=== PATIENT | male | born 1995 ===

== ENCOUNTER 2017-01-23 20:26 | Emergency (ER) | payer BC, OTHER ==
[2017-01-23 21:33] VITALS: PULSE 67; RESP 20; TEMP 98.2; O2SAT 98
[2017-01-23 22:01] LABS: RBC URINE 2 /hpf (0-3); URINE BILIRUBIN NEGATIVE (NEGATIVE); URINE BLOOD NEGATIVE (NEGATIVE); URINE COLOR Straw (YELLOW); URINE GLUCOSE (UA) NORMAL (Normal); URINE KETONE NEGATIVE (NEGATIVE); URINE LEUKOCYTE ESTERASE NEG Leu/uL (Negative); URINE PROTEIN NEGATIVE (NEGATIVE); URINE UROBILINOGEN NORMAL mg/dL (0.2-1.0)
--- NOTE | 2017-01-23 23:03 | C.PDOC ---
History Of Present Illness 21 y/o male c/o bladder tight nsensation for a few days, no dysurai, urgency or frequency. pt denies any penile discharge or pain. pt had unprotected sex one week ago with a female partner. no fever or chills. no ab pain, n/v/d. pt a/so c /o rash to both thighs, not itchy, similar to pimples he gets on legs often Time Seen by Provider: 01/23/17 22:14 Chief Complaint (Nursing): Abdominal Pain Past Medical History Reviewed: Historical Data, Nursing Documentation, Vital Signs Vital Signs: Last Vital Signs Temp 98.2 F 01/23/17 21:29 Pulse 67 01/23/17 21:29 Resp 20 01/23/17 21:29 BP 91/44 L 01/23/17 21:29 Pulse Ox 98 01/23/17 23:06 - Medical History PMH: Asthma Surgical History: No Surg Hx Family History: States: Unknown Family Hx - Social History Hx Tobacco Use: No Hx Alcohol Use: Yes Hx Substance Use: Yes - Immunization History Hx Tetanus Toxoid Vaccination: No Hx Influenza Vaccination: Yes Hx Pneumococcal Vaccination: No Review Of Systems Constitutional: Negative for: Fever, Chills Cardiovascular: Negative for: Chest Pain Respiratory: Negative for: Cough, Shortness of Breath Gastrointestinal: Positive for: Other (bladder discomfort). Negative for: Nausea, Vomiting, Diarrhea, Constipation Genitourinary: Negative for: Dysuria, Frequency, Incontinence, Penile Discharge , Scrotal Pain Skin: Positive for: Other (to legs) Neurological: Negative for: Weakness, Numbness Physical Exam - Physical Exam Appears: Non-toxic Skin: Warm, Dry, Other (scattered ingrown hairs on both anterior thighs with 1 mm erythematous papules, no warmth, itching, swelling. ) Chest: No Deformity, No Tenderness Cardiovascular: Rhythm Regular, No Murmur Gastrointestinal/Abdominal: Normal Exam, Bowel Sounds, Soft, No Tenderness Rectal: Deferred Back: No CVA Tenderness Male Genital: Normal Inspection, No Testicular Tenderness, No Testicular Swelling, No Scrotal Swelling, Circumcised ED Course And Treatment O2 Sat by Pulse Oximetry: 98 Medical Decision Making Medical Decision Making: rash appears like folliculitus will tx for sti with gu f/u Disposition Counseled Patient/Family Regarding: Diagnosis, Need For Followup - Disposition Referrals: Moar Zelaya MD [Staff Provider] - Disposition: HOME/ ROUTINE Disposition Time: 23:08 Condition: GOOD Instructions: Folliculitis (ED), Sexually Transmitted Diseases (ED) - Clinical Impression Clinical Impression: Folliculitis, Sexually transmitted disease in male
[2017-01-23 23:10] VITALS: BP 130/81
== END 2017-01-23 23:16 | disposition home or self-care (01) ==
LOC: MERGE 20:26 → C.ER 20:26
DX: L73.9 Follicular disorder, unspecified (principal); A64 Unspecified sexually transmitted disease

== ENCOUNTER 2017-03-05 19:01 | Emergency (ER) | payer BC, OTHER ==
[2017-03-05 19:08] VITALS: BP 142/84; PULSE 71; RESP 18; TEMP 98.2; O2SAT 100
--- NOTE | 2017-03-05 19:45 | C.PDOC ---
History Of Present Illness 22 year old male presents to the emergency room with complaints of a gradual onset burning sensation and rash noted on the bilateral feet that began today. Patient states that the itchiness bothers him more on the left foot than the right. Patient notes that OTC anti-fungal cream has not provided any relief. Patient denies any previous allergies, previous Eczema, any sick contacts, swelling fever, chills, nausea, vomiting, or any other complaints. Time Seen by Provider: 03/05/17 19:10 Chief Complaint (Nursing): Abnormal Skin Integrity History Per: Patient History/Exam Limitations: no limitations Onset/Duration Of Symptoms: Hrs Current Symptoms Are (Timing): Still Present Location Of Injury: Right: Foot, Left: Foot Quality Of Symptoms: Painful (Burning), Itching. denies: Swollen, Draining Severity: Mild Recent travel outside of the [place]: No Past Medical History Reviewed: Historical Data, Nursing Documentation, Vital Signs Vital Signs: Last Vital Signs Temp 98.2 F 03/05/17 19:07 Pulse 71 03/05/17 19:07 Resp 18 03/05/17 19:07 BP 142/84 03/05/17 19:07 Pulse Ox 100 03/05/17 20:26 - Medical History PMH: Asthma Denies: Chronic Kidney Disease Family History: States: Unknown Family Hx - Social History Hx Tobacco Use: No Hx Alcohol Use: Yes Hx Substance Use: Yes - Immunization History Hx Tetanus Toxoid Vaccination: No Hx Influenza Vaccination: Yes Hx Pneumococcal Vaccination: No Review Of Systems Except As Marked, All Systems Reviewed And Found Negative. Constitutional: Negative for: Fever, Chills Gastrointestinal: Negative for: Nausea, Vomiting, Diarrhea Musculoskeletal: Positive for: Foot Pain (Burning sensation to the bilateral feet.) Skin: Positive for: Rash (Rash and burning sensation to the bilateral feet.) Physical Exam - Physical Exam Appears: Well, Non-toxic, No Acute Distress Skin: Warm, Rash (diffuse slightly erythematous dry skin over plantar aspect Left foot>Right foot at the base of phalanx. No edema, no proximal streaking. ) Extremity: Normal ROM, No Tenderness, No Pedal Edema, No Calf Tenderness, Capillary Refill (less than 2sec to B/L lEs.), No Deformity, No Swelling Neurological/Psych: Oriented x3, Normal Speech, Normal Motor, Normal Sensation, Normal Reflexes ED Course And Treatment O2 Sat by Pulse Oximetry: 100 Pulse Ox Interpretation: Normal Progress Note: On re-eval, pt is afebrile, hemodyanicaly stable. Non-toxic. AMbulatory in ED with stable gait. B/L LE; exam c/w erythematous, dry skin rash r/o contact dermatitis. No cellulitis. FAROM, no neurovascular deficts. Pt advised. re.f to f/[facility] PMD, Podiatry , derm in 2-3 days for re-eavl. return if any new changes. Disposition Counseled Patient/Family Regarding: Diagnosis, Need For Followup, Rx Given - Disposition Referrals: Clinic,Med Surg [Primary Care Provider] - Disposition: HOME/ ROUTINE Disposition Time: 19:44 Condition: STABLE Additional Instructions: Take medication as prescribed Follow up with Dermatology, Podiatry in 1-2 days for re-evaluation. Return to ED if any worsening or new changes. Prescriptions: DiphenhydrAMINE [Benadryl] 25 mg PO BID #10 cap Hydrocortisone 1% Cream [Cortizone 1% Cream] 1 inch TP BID #1 tube Prednisone [Deltasone] 20 mg PO DAILY #3 tablet Instructions: Contact Dermatitis (ED) Forms: Work Excuse - Clinical Impression Clinical Impression: Eczema - Scribe Statement The provider has reviewed the documentation as recorded by the Scribburke Lee All medical record entries made by the Raginiibburke were at my direction and personally dictated by me. I have reviewed the chart and agree that the record accurately reflects my personal performance of the history, physical exam, medical decision making, and the department course for this patient. I have also personally directed, reviewed, and agree with the discharge instructions and disposition.
== END 2017-03-05 20:00 | disposition home or self-care (01) ==
LOC: SUPCPDRO 19:01 → C.ER 19:01
DX: L30.9 Dermatitis, unspecified (principal)

== ENCOUNTER 2017-06-11 17:27 | Emergency (ER) | payer BC, OTHER ==
[2017-06-11 17:46] VITALS: BP 138/79; PULSE 71; RESP 20; TEMP 98.3; O2SAT 99
[2017-06-11 18:27] LABS: RBC URINE < 1 /hpf (0-3); URINE BILIRUBIN NEGATIVE (NEGATIVE); URINE BLOOD NEGATIVE (NEGATIVE); URINE COLOR Yellow (YELLOW); URINE GLUCOSE (UA) NORMAL (Normal); URINE KETONE NEGATIVE (NEGATIVE); URINE LEUKOCYTE ESTERASE NEG Leu/uL (Negative); URINE PROTEIN NEGATIVE (NEGATIVE); URINE UROBILINOGEN NORMAL mg/dL (0.2-1.0)
--- NOTE | 2017-06-11 19:31 | C.PDOC ---
History Of Present Illness pt with hx prior outbreak genital herpes one year ago; now with 4 painful lesions on head of penis x 7 days; pt seen in another clinic several days ago and started on acyclovir 800 mg po 5 x per day and reports no improvement. pt denies penile discharge. no dysuria. no fever or chills. pt reports protected sex only with condoms. pt advised to complete medication and to follow up with [facility] for full workup. printed info for std clinic including address and number given as well as info from [facility] about genital herpes. Time Seen by Provider: 06/11/17 17:59 Chief Complaint (Nursing): Male Genitourinary History Per: Patient History/Exam Limitations: no limitations Onset/Duration Of Symptoms: Days (7) Current Symptoms Are (Timing): Still Present Severity: Mild Quality Of Discomfort: "Pain" Associated Symptoms: denies: Fever, Chills, Nausea, Vomiting Past Medical History Reviewed: Historical Data, Nursing Documentation, Vital Signs Vital Signs: Last Vital Signs Temp 98.3 F 06/11/17 17:43 Pulse 71 06/11/17 17:43 Resp 20 06/11/17 17:43 BP 138/79 06/11/17 17:43 Pulse Ox 99 06/11/17 19:36 - Medical History PMH: Asthma Denies: Chronic Kidney Disease Other PMH: genital herpes Family History: States: Unknown Family Hx - Social History Hx Tobacco Use: No Hx Alcohol Use: Yes Hx Substance Use: Yes - Immunization History Hx Tetanus Toxoid Vaccination: No Hx Influenza Vaccination: Yes Hx Pneumococcal Vaccination: No Review Of Systems Constitutional: Negative for: Fever, Chills Gastrointestinal: Negative for: Abdominal Pain Genitourinary: Positive for: Rash (lesions to head of penis), Penile Pain. Negative for: Dysuria, Frequency, Incontinence, Penile Discharge Skin: Positive for: Lesions (penis) Physical Exam - Physical Exam Appears: Non-toxic, No Acute Distress Skin: Normal Color, Warm, Dry, Other ( 4 1-2 mm lesions notes to proximal head of penis) Gastrointestinal/Abdominal: Bowel Sounds, Soft, No Tenderness Male Genital: No Testicular Tenderness, No Testicular Swelling, No Inguinal Tenderness, No Inguinal Swelling, No Scrotal Swelling, Circumcised, Other ( lesions head of penis, exam chaperoned by cp) ED Course And Treatment O2 Sat by Pulse Oximetry: 99 Medical Decision Making Medical Decision Making: pt with hx prior outbreak genital herpes one year ago; now with 4 painful lesions on head of penis x 7 days; pt seen in another clinic and started on acyclovir 800 mg po 5 x per day and reports no improvement. pt denies penile discharge. no dysuria. no fever or chills. pt advised to complete medication and to follow up with [facility] for full workup. printed info for std clinic including addtresd and number given as well as info from [facility] about genital herpes. Disposition Counseled Patient/Family Regarding: Diagnosis, Need For Followup - Disposition Disposition: HOME/ ROUTINE Disposition Time: 19:31 Condition: STABLE Additional Instructions: Follow up in [facility]; recommend both you and your partner get evaluated there. Recommend no sexual activity until evaluated and lesions clear up. Finish anti-viral medication. Instructions: Genital Herpes Simplex (ED) Forms: [employer] (Ukrainian), General Discharge Instructions - Clinical Impression Clinical Impression: Penile lesion
== END 2017-06-11 19:53 | disposition home or self-care (01) ==
LOC: C.ER 17:27
DX: N48.89 Other specified disorders of penis (principal)

== ENCOUNTER 2017-06-17 17:16 | Emergency (ER) | payer BC ==
[2017-06-17 17:34] VITALS: BP 130/85; TEMP 98.3
--- NOTE | 2017-06-17 17:39 | C.PDOC ---
History Of Present Illness 22 y/o male with Hx of Asthma presents to ED with complaints of persistent penile lesion since 06/07. Patient also complaints of general malaise, non productive cough, myalgia for 3 days and subjective fever. Patient states he started Acyclovir for 7 days immediately with onset symptoms. Patient reports he had additional lesions "that looked like they were coming out" but resolved and admits to protected sex and monogamous. Negative HIV testing x2, negative RPR and GC. Patient was seen at ED on 06/11 for similar symptoms. Patient concerned with persistent one lesion and denies pain, discharge, redness, swelling or any other complaints at this time. CO PERSIST PENILE LESION SINCE 06/07. PS STARTED ACYCLOVIR X 7 DAYS IMMEDIATELY W SX ONSET. HAD ADDITIONAL LESIONS "THAT LOOKED LIKE THEY WERE COMING OUT" BUT THOSE RESOLVED. CONCERNED W PERSIST ONE LESION. NO PAIN, DC, REDNESS, SWELL. SEEN 06/11 FOR SAME. +PROTECTED SEX, MONOGOMOUS. PS NEGATIVE HIV TESTING X 2, NEG RPR AND GC. 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 SUB FEVER. HO ASTHMA. EXAM NAD NONTOXIC HEENT +SINUS YVES NO RHINORRHEA LUNGS CTA B/L NO W/R/R NO RETRACT CIRCUMSCISED; +SINGLE LESION DORSAL RIM OF GLANS. NO SECONDARY INFXN. NONTEND. NO PENILE DC MDM ADVISED TO CONT SAFE SEX PRACTICES. VIRAL SYNDROME PROBABLE URI. Time Seen by Provider: 06/17/17 17:38 Chief Complaint (Nursing): Male Genitourinary History Per: Patient History/Exam Limitations: no limitations Onset/Duration Of Symptoms: Days Current Symptoms Are (Timing): Still Present Quality Of Discomfort: "Pain" Past Medical History Reviewed: Historical Data, Nursing Documentation, Vital Signs Vital Signs: Last Vital Signs Temp 98.3 F 06/17/17 17:31 Pulse 84 06/17/17 17:31 Resp 16 06/17/17 17:31 BP 130/85 06/17/17 17:31 Pulse Ox 100 06/17/17 18:31 - Medical History PMH: Asthma Denies: Chronic Kidney Disease Family History: States: No Known Family Hx - Social History Hx Tobacco Use: No Hx Alcohol Use: Yes Hx Substance Use: Yes - Immunization History Hx Tetanus Toxoid Vaccination: No Hx Influenza Vaccination: Yes Hx Pneumococcal Vaccination: No Review Of Systems Except As Marked, All Systems Reviewed And Found Negative. Constitutional: Positive for: Fever. Negative for: Chills Respiratory: Positive for: Cough Gastrointestinal: Negative for: Nausea, Vomiting Genitourinary: Negative for: Dysuria, Frequency, Penile Discharge Skin: Positive for: Lesions. Negative for: Rash Neurological: Positive for: Weakness Physical Exam - Physical Exam Appears: Non-toxic, No Acute Distress Skin: Normal Color, Warm, Dry, No Rash Eye(s): bilateral: Normal Inspection, PERRL, EOMI Nose: Other (Congested, no rhnorrhea) Oral Mucosa: Moist Cardiovascular: Rhythm Regular Respiratory: No Rales, No Rhonchi, No Wheezing, Other (CTA bilateral) Male Genital: No Testicular Tenderness, Circumcised, Other (Single lesion dorsal rim of glans, No secondary infection, Non tender, No penile discharge) Neurological/Psych: Oriented x3, Normal Speech, Normal Cognition ED Course And Treatment O2 Sat by Pulse Oximetry: 100 (RA) Pulse Ox Interpretation: Normal Progress - Re-Evaluation Re-evaluation Note: 06/17/17 18:15 PT ASKING "FOR BLOODWORK" AND ANTIBIOTICS "FOR MY FLU LIKE SYMPTOMS". ADVISED SX ARE VIRAL AND NO LAB TESTING EXISTS FOR HIS REQUESTS. NO INDICATION FOR ANTIBIOTICS. PT REQUESTING MEDICINE TO "MAKE THIS ON MY PENIS GO AWAY FASTER". ADVISED NO SUCH THERAPY EXISTS AND ADVISED OF POTENTIAL DURATION OF SX DURING AN OUTBREAK. 06/17/17 18:32 Patient refused albuterol treatment - Data Reviewed Data Reviewed: Old records Medical Decision Making Medical Decision Making: Patient advised to continue safe sex practices Viral syndrome probable URI Disposition Counseled Patient/Family Regarding: Diagnosis, Need For Followup, Rx Given - Disposition Referrals: [facility] [Outside] [facility] [Outside] Disposition: HOME/ ROUTINE Disposition Time: 18:18 Condition: IMPROVED Prescriptions: Benzonatate [Tessalon Perles] 200 mg PO TID PRN #15 sgl PRN Reason: Cough Ibuprofen [Motrin] 600 mg PO Q6 #30 tab Pseudoephedrine HCl [Sudafed 24 Hour] 240 mg PO DAILY PRN #1 unit PRN Reason: Sinus Symptoms Instructions: Genital Herpes Simplex (ED), Upper Respiratory Infection (ED) Forms: [employer] (Lao), Work Excuse - Clinical Impression Clinical Impression: Recurrent genital herpes, Viral syndrome - 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 - Scribe Statement The provider has reviewed the documentation as recorded by the Farzana Calderon All medical record entries made by the Farzana were at my direction and personally dictated by me. I have reviewed the chart and agree that the record accurately reflects my personal performance of the history, physical exam, medical decision making, and the department course for this patient. I have also personally directed, reviewed, and agree with the discharge instructions and disposition.
[2017-06-17] MEDS ORDERED: Albuterol 0.083% Inhal Sol (2.5 mg/3 mL) UD INH STA (18:02)
[2017-06-17 18:46] VITALS: PULSE 72; RESP 18; O2SAT 97
== END 2017-06-17 18:46 | disposition home or self-care (01) ==
LOC: C.ER 17:16
DX: B34.9 Viral infection, unspecified (principal); B00.9 Herpesviral infection, unspecified
CPT/HCPCS: 96372; 99284; J1885

== ENCOUNTER 2018-04-20 02:27 | Emergency (ER) | payer BC ==
[2018-04-20 02:47] VITALS: O2SAT 98
[2018-04-20] MEDS ORDERED: Albuterol-Ipratrop 3 mg / 0.5 (3 ml) UD IH STA (03:16)
[2018-04-20] MEDS ORDERED: Albuterol-Ipratrop 3 mg / 0.5 (3 ml) UD ONE (03:24)
--- NOTE | 2018-04-20 04:16 | C.PDOC ---
History Of Present Illness 23 year old male presents to the ED c/o asthma exacerbation for the past 1 week. Patient reports while he was in [place] he was admitted at a Hospital there for asthma exacerbation. Patient was admitted for 4 days and recently discharged home on Saturday. Patient states that when lying down flat symptoms worsens. Patient denies fever, chills, nausea, vomit, rash. Time Seen by Provider: 04/20/18 02:32 Chief Complaint (Nursing): Shortness Of Breath History Per: Patient History/Exam Limitations: no limitations Onset/Duration Of Symptoms: Days Current Symptoms Are (Timing): Still Present Initiating Event: Upper Respiratory Illness Quality: Tightness Exacerbating Factor(s): Laying Flat, Coughing Current Respiratory Medications: See Home Med List Severity: None Reports Recently: Hospitalized ([facility], D/C on Saturday) Recent travel outside of the [place]: No Additional History Per: Patient Past Medical History Reviewed: Historical Data, Nursing Documentation, Vital Signs Vital Signs: Last Vital Signs Temp 97.7 F 04/20/18 04:21 Pulse 75 04/20/18 04:21 Resp 16 04/20/18 04:21 BP 131/72 04/20/18 04:21 Pulse Ox 98 04/20/18 06:37 - Medical History PMH: Asthma Denies: Chronic Kidney Disease Surgical History: No Surg Hx Family History: States: Unknown Family Hx - Social History Hx Tobacco Use: No Hx Alcohol Use: Yes Hx Substance Use: Yes - Immunization History Hx Tetanus Toxoid Vaccination: No Hx Influenza Vaccination: Yes Hx Pneumococcal Vaccination: No Review Of Systems Constitutional: Negative for: Fever, Chills ENT: Negative for: Nose Discharge, Nose Congestion Respiratory: Positive for: Shortness of Breath, Wheezing. Negative for: Cough Gastrointestinal: Negative for: Nausea, Vomiting Skin: Negative for: Rash Neurological: Negative for: Weakness, Numbness Physical Exam - Physical Exam Appears: Non-toxic, No Acute Distress Skin: Normal Color, Warm, Dry Head: Atraumatic, Normacephalic Eye(s): bilateral: Normal Inspection Oral Mucosa: Moist Neck: Normal ROM, Supple Chest: Symmetrical Cardiovascular: Rhythm Regular Respiratory: Normal Breath Sounds, No Rales, No Rhonchi, No Wheezing Gastrointestinal/Abdominal: Soft, No Tenderness, No Guarding, No Rebound Extremity: Normal ROM, No Tenderness, No Swelling Neurological/Psych: Oriented x3, Normal Speech Gait: Steady ED Course And Treatment O2 Sat by Pulse Oximetry: 98 (ON RA) Pulse Ox Interpretation: Normal - Radiology CXR: Interpreted by Me CXR Interpretation: Yes: No Acute Disease Progress Note: Plan: - Nebulizer treatement. - Prednisone 60 mg PO. - CXR. On re-evaluation patient feels better and is stable to be d/c home with PMD follow up. Patient is resting comfortably with no wheezing, chest pain, or retractions. Oxygen saturation has improved. Patient is alert and oriented x 3. Patient was advised to follow up with physician in 1-2 days. Disposition - Disposition Disposition: HOME/ ROUTINE Disposition Time: 04:20 Condition: IMPROVED Additional Instructions: Follow up with your PMD within 1-2 days. Return to ED if feel worse. 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 - Scribe Statement The provider has reviewed the documentation as recorded by the Scribe Carlos Enrique Niño All medical record entries made by the Scribe were at my direction and personally dictated by me. I have reviewed the chart and agree that the record accurately reflects my personal performance of the history, physical exam, medical decision making, and the department course for this patient. I have also personally directed, reviewed, and agree with the discharge instructions and disposition.
[2018-04-20 04:21] VITALS: BP 131/72; PULSE 75; RESP 16; TEMP 97.7
== END 2018-04-20 04:24 | disposition home or self-care (01) ==
LOC: C.ER 02:27
DX: J45.901 Unspecified asthma with (acute) exacerbation (principal); F17.210 Nicotine dependence, cigarettes, uncomplicated